=== PATIENT | female | born 1955 | race Caucasian/White ===

== ENCOUNTER 2024-01-24 15:21 | Outpatient (REF) | payer MEDICARE, SELFPAY ==
[2024-01-24 16:57] LABS: Anion Gap 10 (12-20); Blood Urea Nitrogen 12 mg/dL (9-16); Calcium 9.8 mg/dL (8.4-10.2); Carbon Dioxide 32 mmol/L (22-29); Chloride 104 mmol/L (96-108); Estimated Glomerular Filt Rate > 60; Glucose Random 97 mg/dL (60-115); Potassium 4.4 mmol/L (3.3-5.1); Sodium 142 mmol/L (135-145)
[2024-01-24 16:59] LABS: TSH reflex Free T4 0.73 uIU/mL (0.32-4.0)
[2024-01-24 17:18] LABS: Folate > 20.0 ng/mL (> or = 4.0); Vitamin B12 618 pg/mL (200-900)
== END 2024-01-24 15:22 | disposition home or self-care (01) ==
LOC: HO.LAB 15:21
PROVIDERS: PCP Internal Medicine; Visit Provider Psychiatry & Neurology Neurology
DX: R41.3 Other amnesia (principal)
CPT/HCPCS: 36415; 80048; 82607; 82746; 84443